=== PATIENT | female | born 1970 | race American Indian/Alaskan Native ===

== ENCOUNTER 2018-03-01 08:31 | Outpatient (CLI) | payer BC ==
--- NOTE | 2018-03-02 16:33 | Mammography Report ---
BILATERAL DIGITAL SCREENING MAMMOGRAM with CAD: 03/01/18 08:31:00 CLINICAL: Routine screening.Breast cancer survivor status post left partial mastectomy and radiation therapy in 2013. COMPARISON:[facility] 09/23/15 and 03/15/16 mammograms. FINDINGS: The right breast is heterogeneously dense, which may obscure small masses. A right upper outer biopsy clip. A right retroareolar asymmetry on the MLO view is new compared to prior exams and requires additional imaging.No architectural distortion or suspicious calcifications.The left breast is stable with a stable irregular seroma at the surgical site which is relatively central and posterior. IMPRESSION: Right asymmetry requiring further workup. BI-RADS CATEGORY: 0 -- Additional Imaging Evaluation Required RECOMMENDATION: Recall for right mediolateral and spot magnification MLO views and right breast ultrasound if needed. ACR BI-RADS MAMMOGRAPHIC CODES: 0 = Needs additional imaging evaluation; 1 = Negative; 2 = Benign; 3 = Probably benign; 4 = Suspicious; 5 = Malignant; 6 = Known biopsy-proven malignancy COMMENT: 1. Dense breast tissue, i.e., adenosis, fibrocystic changes, etc., may obscure an underlying neoplasm. 2. Approximately 10% of cancers are not detected with mammography. 3. A negative mammography report should not delay biopsy if a clinically suspicious mass is present. COMMENT: Patient follow-up letters are generated via our [employer] application.
== END 2018-03-01 08:32 | disposition home or self-care (01) ==
LOC: SPVWC 08:31
PROVIDERS: ATTEND Hospitalist
DX: Z12.31 Encounter for screening mammogram for malignant neoplasm of breast (principal)
CPT/HCPCS: 77067

== ENCOUNTER 2022-02-02 15:40 | Outpatient (CLI) | payer OTHER ==
--- NOTE | 2022-02-07 08:41 | Mammography Report ---
DIGITAL SCREENING MAMMOGRAM WITH CAD, 02/02/2022 CLINICAL INFORMATION / INDICATION: Routine screening mammography. The patient has a personal history of left breast cancer treated with lumpectomy and radiation. TECHNIQUE: Digital bilateral 2D mammography was obtained in the craniocaudal and mediolateral obliqu e projections. This examination was interpreted with the benefit of Computer-Aided Detection analysis . COMPARISON: 09/16/2019, 03/20/2019, 03/01/2018 FINDINGS: Breast Density: The breasts are heterogeneously dense, which may obscure small masses. Right breast: No dominant mass, suspicious calcifications, or architectural distortion in the right b reast. Left breast: Post-lumpectomy findings are again noted in the lateral left breast. IMPRESSION: 1. The patient initially presented for a screening mammogram but reported a history of left bloody ni pple discharge. Therefore, she will need to return for additional diagnostic evaluation for left deniz st including retroareolar magnification views and left retroareolar ultrasound. Magnification views o f the lumpectomy site are also recommended from previous diagnostic evaluation. Follow up recommendation: Special View: Magnification BI-RADS Category 0: INCOMPLETE. Needs additional imaging evaluation and/or prior mammograms for raquel risaniceto. A "normal" or negative report should not discourage follow up or biopsy of a clinically significant f inding. A written summary of these findings will be mailed to the patient. The patient will be entered into a mammography reporting system which will generate a reminder letter for the patient's next appointmen t at the appropriate interval. The [employer] recommends yearly mammograms starting at age 40 and continuing as l connor as a woman is in good health. Breast MRI is recommended for women with an approximate 20-25% or greater lifetime risk of breast cancer, including women with a strong family history of breast or ova ngerito cancer or who have been treated for Hodgkin's disease. Signer Name: Geraldine Castaneda MD Signed: 02/07/2022 8:37 AM Workstation Name: [employer]
== END 2022-02-02 15:41 | disposition home or self-care (01) ==
LOC: SPVWC 15:40
PROVIDERS: ATTEND Internal Medicine
DX: Z12.31 Encounter for screening mammogram for malignant neoplasm of breast (principal)
CPT/HCPCS: 77067

== ENCOUNTER 2022-04-07 13:38 | Outpatient (CLI) | payer OTHER ==
--- NOTE | 2022-04-07 16:35 | Ultrasound Report ---
LEFT DIGITAL DIAGNOSTIC MAMMOGRAM , 04/07/2022 LEFT LIMITED BREAST ULTRASOUND CLINICAL INFORMATION / INDICATION: Patient presents for diagnostic evaluation of the left breast due to history of bloody nipple discharge. Patient has history of left breast carcinoma treated with lump ectomy and radiation in . TECHNIQUE: Digital left mammographic imaging was performed. Magnification views were obtained. Limite d ultrasound was performed. COMPARISON: Multiple prior mammograms dating back to 03/01/2018, including magnification views of the left breast 03/20/2019. FINDINGS: Breast Density: The breasts are heterogeneously dense, which may obscure small masses. MAMMOGRAPHIC FINDINGS: Lumpectomy scar is noted in the deep retroareolar left breast. There is dystro phic coarse calcification within the lumpectomy scar consistent with fat necrosis. There are a few pu nctate calcifications slightly anterior to the lumpectomy site which are unchanged for magnification views from 03/20/2019. No suspicious findings identified on today's diagnostic exam. ULTRASOUND FINDINGS: Targeted ultrasound evaluation was performed of the area of interest. Sonograp hic evaluation of the subareolar left breast is unremarkable. No solid mass or suspicious area of sha dowing is noted. No ductal ectasia identified. IMPRESSION: No mammographic or sonographic evidence of malignancy. Lumpectomy scar and associated kristen cifications appear stable compared with 2019. Clinical correlation for history of left bloody nipple discharge is recommended. Patient has reported left bloody nipple discharge as far back as 2019. Clin ical correlation recommended as to whether surgical consultation is warranted. Follow up recommendation: Routine yearly screening mammogram. BI-RADS Category 2: BENIGN. A "normal" or negative report should not discourage follow up or biopsy of a clinically significant f inding. A written summary of these findings will be mailed to the patient. The patient will be entered into a mammography reporting system which will generate a reminder letter for the patient's next appointmen t at the appropriate interval. According to the [employer], yearly mammograms are recommended starting at age 40 and continuing as long as a woman is in good health. Breast MRI is recommended for women with an stella roximately 20-25% or greater lifetime risk of breast cancer, including women with a strong family his tory of breast or ovarian cancer and women who have been treated for Hodgkin's disease. Signer Name: Mena Gillis MD Signed: 04/07/2022 4:31 PM Workstation Name: [email or web address]
== END 2022-04-07 13:39 | disposition home or self-care (01) ==
LOC: MAMMO 13:38
PROVIDERS: ATTEND Internal Medicine
DX: R92.1 Mammographic calcification found on diagnostic imaging of breast (principal); N64.52 Nipple discharge; Z85.3 Personal history of malignant neoplasm of breast